=== PATIENT | female | born 1945 | race Caucasian/White ===

== ENCOUNTER 2025-04-13 10:09 | Outpatient (CLI) | payer MEDICARE, SELFPAY ==
--- NOTE | 2025-04-13 06:00 | DI.RAD_ITS ---
Exam(s) XR PAIN CLINIC LUMBAR SP 2V EXAM: XR PAIN CLINIC LUMBAR SP 2V CLINICAL HISTORY: DX: Lumbar Radiculopathy TECHNIQUE: 2D and realtime digital imaging was performed. CONTRAST MATERIAL: Refer to procedure report. COMPARISON: No exams were available for comparison FINDINGS: Fluoroscopy was provided for Dr. Peguero during the performance of a caudal epidural steroid injection. Please refer to the procedure report for complete details. Ka,r=4.96 mGy IMPRESSION: RADIATION DOSE DELIVERED: 0.0 0.0 0
[2025-04-13 10:37] VITALS: BP 158/75; PULSE 68; RESP 20; TEMP 37; O2SAT 96
[2025-04-13 10:52] VITALS: PULSE 71; O2SAT 96
[2025-04-13 10:54] VITALS: BP 197/77; PULSE 67; PULSE 73; RESP 17; O2SAT 98
[2025-04-13 11:00] VITALS: PULSE 56; PULSE 93; RESP 17
[2025-04-13 11:01] VITALS: BP 199/65; PULSE 75; PULSE 85; RESP 15; O2SAT 98
--- NOTE | 2025-04-13 11:06 | PDOC.PAIN ---
Date of service: 04/13/25 Time of Service: 11:06 Pain Managment Procedure Note Procedure Note Procedure Note: PROCEDURE NOTE CAUDAL EPIDURAL STEROID INJECTION Date of Service: April 13, 2025 Patient:? CAL FLAHERTY? Provider:? Kirit Craven DO, MPH CAL FLAHERTY has been referred to the [facility] for caudal epidural steroid injection.? Pre-operative diagnosis: Lumbosacral Radiculopathy, ICD-10 M54.17 Post-operative diagnosis: Same Pre-Procedure Pain: VAS= 5-6/10. COMMENTS: I previously evaluated her in the office. She has had previously low back surgery. Her symptoms are the same as they were when I saw her last in the office. ISHAANwas interviewed and the medical record was reviewed.? There were no medical, pharmacologic, radiographic or other structural contraindications to attempting fluoroscopically guided epidural steroid injection.? Risks and expected side effects as well as potential benefit of the procedure were reviewed with ISHAAN, and the patient's voiced concerns were addressed.? The printed consent form was signed.? Standard time-out procedure was performed. ISHAAN was placed in the prone position on the fluoroscopy table and automated blood pressure cuff and pulse oximeter applied.? The skin entry point for entering/approaching the epidural space by a caudal approach through the sacral hiatus ed identified with surgical skin marking.? Following thorough chlorhexidine preparation of the skin and draping and 1% lidocaine infiltration of the skin entry point and subcutaneous tissues, a 17 gauge Touhy needle was placed under fluoroscopic guidance? into the epidural space. Needle tip placement and depth were aided and confirmed by fluoroscopy in the lateral and AP position. There was no paresthesia or return of blood or CSF through the needle. 1 cc of Omnipaque 240 was injected with clear epidural spread confirmed with fluoroscopy. An Arrow 19G radio-opaque epidural catheter was advanced into the epidural space to the L5-S1 level and 2 cc of Omnipaque 240 was injected with clear epidural spread. 80 mg of Depo-Medrol was? injected. There was no unusual discomfort expressed by CAL. The needle and catheter were then flushed with 1 cc of 1% Lidocaine and they were removed together without difficulty (49 cc of Omnipaque was wasted). CAL was observed and was without hemodynamic, neurologic, or allergic reactions.? Fluoroscopic images were digitally archived. CAL's vital signs were stable throughout the procedure and were as recorded in the docflowsheet by the nursing staff.? If given, dosages of intravenous drugs for anxiolysis and analgesia were documented in MAR. Follow up plans and appointments were discussed with CAL.? Post procedure instruction was given as documented in nursing documentation and having met discharge criteria, CAL was [facility]. ? COMMENTS: No apparent complications.? Post-procedure pain: VAS= 0/10. If the patient receives at least 50% improvement in pain and/or function for at least 3 months, this procedure can be repeated. I personally completed the entire procedure. KIRIT CRAVEN DO, MPH [employer]BPM[employer] - Subspecialty board certification in Pain Medicine [facility] Coding Conscious Sedation used for procedure: No CPT Codes: Inj Spine L/S w/Imaging - [id number] ([id number] ~G) Additional Codes: Date of Service (77903) Date of service: 04/13/25 Diagnoses: lumbar radiculopathy
[2025-04-13] MEDS: Nerve Block Tray 1 EACH MC (11:11)
[2025-04-13] MEDS: Omnipaque 240 MG/ML 50 ML BTL IJ (11:12)
[2025-04-13] MEDS: methylPREDNISolone ACETATE 40 MG/ML VIAL IJ (11:12)
== END 2025-04-13 10:10 | disposition home or self-care (01) ==
LOC: PC 10:09
PROVIDERS: PCP Family Medicine; Visit Provider Preventive Medicine Occupational Medicine
DX: M54.50 Low back pain, unspecified (principal); M54.17 Radiculopathy, lumbosacral region
CPT/HCPCS: 62323; 72100; J1010; Q9967

== ENCOUNTER 2025-06-09 09:25 | Outpatient (CLI) | payer MEDICARE, SELFPAY ==
[2025-06-09 09:42] VITALS: BP 143/72; PULSE 67; RESP 20; TEMP 37; O2SAT 99
[2025-06-09 10:06] VITALS: PULSE 75; O2SAT 97
[2025-06-09 10:08] VITALS: BP 185/79; PULSE 62; PULSE 63; RESP 19; O2SAT 99
[2025-06-09 10:10] VITALS: PULSE 69; PULSE 70; RESP 16; O2SAT 99
[2025-06-09 10:16] VITALS: BP 175/71; PULSE 66; PULSE 67; RESP 21; O2SAT 100
--- NOTE | 2025-06-09 10:18 | DI.RAD_ITS ---
Exam(s) XR PAIN CLINIC SACRIOILIAC 2V EXAM: XR PAIN CLINIC SACRIOILIAC 2V CLINICAL HISTORY: DX: Sacroiliac Dysfunction TECHNIQUE: 2D and realtime digital imaging was performed. Radiologist not present. CONTRAST MATERIAL: None. COMPARISON: No exams were available for comparison FINDINGS: Fluoroscopy was provided for pain management therapy. Sacroiliac joint injection Please refer to procedure report or details. Radiation Exposure Index: Ka,r=5.97 mGy IMPRESSION: As above. RADIATION DOSE DELIVERED:
[2025-06-09] MEDS: methylPREDNISolone ACETATE 40 MG/ML VIAL IJ (10:24)
[2025-06-09] MEDS: Nerve Block Tray 1 EACH MC (10:24)
[2025-06-09] MEDS: Omnipaque 240 MG/ML 50 ML BTL IJ (10:24)
--- NOTE | 2025-06-09 12:22 | PDOC.PAIN ---
Date of service: 06/09/25 Time of Service: 10:00 Pain Managment Procedure Note Procedure Note Procedure Note: PROCEDURE NOTE RIGHT INTRA-ARTICULAR SACROILIAC JOINT INJECTION Date of Service: June 09, 2025 Patient: CAL FLAHERTY Provider: Kirit Craven DO, MPH COMMENTS: I previously evaluated the patient in the office and their symptoms in relation to the sacroiliac joint pain have remained the same. Pre-operative diagnosis: Sacroiliac joint dysfunction ICD-10 M53.3 Post-operative diagnosis: Same Pre-procedure pain: VAS= 4/10 CAL FLAHERTY has been referred to our [facility] for a Right intra-articular Sacroiliac joint injection. CAL was interviewed and the medical record reviewed. There were no medical, pharmacologic, radiographic or other structural contraindications to attempting a fluoroscopically-guided, contrast-enhanced, intra-articular Sacroiliac joint injection. The risks, benefits, and potential side effects of this procedure were reviewed with the patient. Questions and concerns were addressed. After it was clear that CAL was fully informed about the procedure, the printed consent form was signed by the patient and myself. CAL was placed in the prone position on the fluoroscopy table and an automated blood pressure cuff, 3 lead EKG, and pulse oximeter were applied. The skin entry point for approaching the Right sacroiliac joint was identified under the most advantageous fluoroscopic view and marked. Following thorough Chlorhexadine preparation of the skin and draping with sterile surgical drapes, 2 mls of 1% lidocaine was infiltrated into the skin at the entry point and the surrounding subcutaneous tissues. Next, a 3.5 22G spinal needle was placed under fluoroscopic guidance into the Right sacroiliac joint. Intra-articular placement was confirmed by a clear arthrogram resulting from the injection of 0.25ml of Omnipaque-240. Next, 2 ml of Depo- Medrol 40 mg/ml was injected intra-articularly with an initial reproduction of a significant component of the usual pain. This was followed with 1 ml of 1% Lidocaine. The needle was then removed without difficulty. (49 ml of Omnipaque-240 was wasted). SAMANTHAs vital signs were stable throughout the procedure and were as recorded in nursing records. Follow up plans and appointments were discussed with CAL. Post procedure instructions were given as documented in nursing records. Having met discharge criteria, CAL was discharged from the [facility]. COMMENTS: Post-procedure pain: VAS= 0/10. If the patient receives at least 50% improvement in pain and/or function for at least 3 months, this procedure can be repeated if needed. I personally performed this entire procedure. KIRIT CRAVEN DO, MPH ABPMR-subspecialty board certification in Pain Medicine [facility] Coding Conscious Sedation used for procedure: No CPT Codes: SI Joint Inj; incl Fluoro - [id number] ([id number] ~G) Additional Codes: Date of Service () Diagnoses: Sacroiliac joint dysfunction
== END 2025-06-09 09:26 | disposition home or self-care (01) ==
LOC: PC 09:25
PROVIDERS: PCP Family Medicine; Visit Provider Preventive Medicine Occupational Medicine
DX: M54.50 Low back pain, unspecified (principal); M53.3 Sacrococcygeal disorders, not elsewhere classified
CPT/HCPCS: 27096; 72200; J1010; Q9967